=== PATIENT | female | born 1985 | race Caucasian/White ===

== ENCOUNTER 2018-08-02 09:19 | Day surgery (SDC) | payer OTHER, SELFPAY ==
[2018-07-23 07:35] VITALS: BMI 30.5
--- NOTE | 2018-08-02 | PATH_ITS ---
[facility] Accession Number: [id number] . 01 Material submitted: . neck - RIGHT NECK . 01 Clinical history: . FATTY MASS . 01 Diagnosis: Skin, Right Neck, Excision: Skin with underlying mature adipose tissue, consistent with lipoma. MRV/08/07/2018 . 01 Electronically signed: . Meghana Ervin MD, Pathologist NPI- [id number] . 01 Gross description: . Received in formalin, labeled right neck fatty mass, are multiple pieces of mccracken-yellow rubbery adipose tissue (4.0 x 2.8 x 1.0 cm in aggregate) partially covered in mccracken-white smooth shiny unremarkable skin (2.5 x 0.8 cm). The cut surface is homogeneous and unremarkable. The resection margin and underlying tissue are inked blue. Clinical Rehabilitation Aide serial sections submitted in cassettes A1 and A2. ([id number]) /MRV . 01 Microscopic: . There is a mild lentiginous melanocytic hyperplasia within the epidermis, which is most consistent with chronic sun exposure, rather than an atypical melanocytic neoplasm. Dr. Taryn Manriquez (dermatopathologist) reviewed this case and agrees with the interpretation. . 01 Pathologist provided ICD-10: D23.9 . 01 CPT . 263953 Performed at: [address], [place], [place] [id number] MD Hema Arce MD Phone: [phone]
[2018-08-02 09:58] VITALS: BMI 30.4
[2018-08-02 10:03] VITALS: BP 114/77; PULSE 57; RESP 16; TEMP 36.3; O2SAT 100
[2018-08-02] MEDS: LACTATED RINGERS 1,000 ML 42 ML IV (10:17)
--- NOTE | 2018-08-02 10:18 | PM.PREOP ---
Pre-operative Note Interval Note History & Physical reviewed/Exam performed by Physician: Yes Changes to H&P: No H&P completed within 30 days and has changed as indicated here:: Please see note from office July 04 for history and physical
[2018-08-02] MEDS: CEFAZOLIN 2 GM/100 ML FROZ.PIGGY IV (10:28)
[2018-08-02] MEDS: BUPIVACAINE 0.5% W/ EPI (PF) VIAL 30 ML INJ (10:59)
[2018-08-02 11:23] VITALS: BP 115/73; PULSE 77; RESP 16; TEMP 36.3; O2SAT 97
--- NOTE | 2018-08-02 11:28 | PM.OP.1 ---
Operative Date/Time/Diagnoses Date of procedure: 08/02/18 Time of procedure: 11:21 Pre-op diagnosis: Recurrent lipoma right base of neck Post-op diagnosis: same Procedure & Clinicians Procedure: Excision of fatty mass/lipoma. Removed in 2 pieces. Measured approximately 4 by 4 cm Same procedure as scheduled: Yes Indications: Symptomatic lipoma recurrence. 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 Surgeon: Sae De Luna Click Yes if Unassisted: Yes Anesthesia Type: General Operative Notes Findings: Fatty mass. A portion of it appeared to be free of attachments. A 2nd portion was densely adherent to the trapezius muscle and the overlying skin. Closure Type: primary Specimen(s): other (Fatty mass in 2 pieces) Prosthetic devices, grafts, tissues, transplants, or devices: None Estimated Blood Loss (mL): 5 Blood products transfused: none Procedure in detail: Patient was placed supine on the operating room table and underwent general LMA anesthesia. She was placed in left lateral decubitus on a beanbag with all of her prominences padded. Axillary roll was in place. She was prepped and draped in the usual fashion. An elliptical incision was made to include the prior scar overlying this mass. Was carried down into the subcu. There was clearly a new portion of lipoma which had grown since her last excision. It had no attachments and easily peeled off from surrounding structures. It was not attached densely to the underlying trapezius. I removed this in 1 section and then dealt with the recurrent portion where she had had her prior operation. This was densely adherent to the trapezius muscle itself. I excised it sharply taking great pains to try to make sure I was not encountering any nerves. The scarring was quite dense though and it would have been difficult to see the nerve in this process. Once I had removed the 2nd portion of the wound was examined and hemostasis achieved. There had been minimal blood loss. The subcu was closed with interrupted 3 0 Vicryl. The dermis was closed with a running 4 0 Vicryl subcuticular stitch and Steri-Strips were used on the skin. Dressing was applied and the patient was awakened extubated and taken to recovery area in good condition. Complications: none Condition: stable Disposition: PACU Plan for aftercare: Follow-up in the office
[2018-08-02 11:39] VITALS: BP 129/80; PULSE 70; RESP 9; O2SAT 100
[2018-08-02 11:50] VITALS: BP 136/73; PULSE 64; RESP 18; TEMP 36.6; O2SAT 100
[2018-08-02 12:12] VITALS: BP 121/72; PULSE 58; RESP 16; O2SAT 100
== END 2018-08-02 12:21 | disposition home or self-care (01) ==
PROVIDERS: PCP Radiology Diagnostic Radiology; Visit Provider Specialist
PROC: (CPT 21552; principal; 2018-08-02 10:45)
DX: D17.0 Benign lipomatous neoplasm of skin and subcutaneous tissue of head, face and neck (principal)
CPT/HCPCS: 21552; 88305; J0690; J1100; J1885; J2405; J2704